=== PATIENT | male | born 1980 | race Caucasian/White ===

== ENCOUNTER 2021-10-11 09:04 | Outpatient (CLI) | payer OTHER, SELFPAY ==
[2021-10-11 14:21] LABS: Cholesterol* 252 mg/dL (90-199); HDL Cholesterol* 63 mg/dL (>=40); LDL Cholesterol Calculated 155 mg/dL (<100); Triglycerides* 172 mg/dL (40-149)
== END 2021-10-11 09:05 | disposition home or self-care (01) ==
PROVIDERS: Visit Provider Physician Assistant Medical
DX: Z00.00 Encounter for general adult medical examination without abnormal findings (principal); R03.0 Elevated blood-pressure reading, without diagnosis of hypertension; Z13.6 Encounter for screening for cardiovascular disorders; Z13.29 Encounter for screening for other suspected endocrine disorder
CPT/HCPCS: 80061; 84443

== ENCOUNTER 2022-01-05 19:25 | Outpatient (CLI) | payer OTHER, SELFPAY ==
--- NOTE | 2022-01-18 12:54 | W.PM.SLEEP ---
Sleep Study Details Details Interpreting Provider: Kevin Vick MD Date of Sleep Study: 01/05/22 Sleep Study Details: STUDY TYPE:? Home ? BMI:? 38.4 ORDERING PROVIDER:? Manuela INDICATION:? Concerns about sleep apnea ? SLEEP SUMMARY:? 613 monitored minutes RESPIRATORY SUMMARY:? AHI 8, supine AHI 42.5, left lateral AHI 7.7, right lateral AHI 21 prone 0 Low oxygen 81 6.9% of study oxygen less than 90%, 0.3% of study oxygen less than 85% Snoring 47.2 PERIODIC LIMB MOVEMENTS OF SLEEP:? Not recorded CARDIAC:? 60-106, mean 81.2 IMPRESSION:? Mild obstructive sleep apnea overall although the patient has severe apnea in the supine position and moderate apnea in the right lateral position RECOMMENDATION: AutoSet CPAP pressure 4-17
== END 2022-01-05 19:26 | disposition home or self-care (01) ==
PROVIDERS: Visit Provider Physician Assistant Medical
DX: G47.33 Obstructive sleep apnea (adult) (pediatric) (principal)
CPT/HCPCS: 95806

== ENCOUNTER 2024-03-18 13:13 | Outpatient (CLI) | payer OTHER, SELFPAY | END 2024-03-18 13:14 | disposition home or self-care (01) | PROVIDERS: Visit Provider Physician Assistant Medical | DX: R03.0 Elevated blood-pressure reading, without diagnosis of hypertension (principal); Z13.0 Encounter for screening for diseases of the blood and blood-forming organs and certain disorders involving the immune mechanism; Z13.6 Encounter for screening for cardiovascular disorders; Z13.1 Encounter for screening for diabetes mellitus; Z13.29 Encounter for screening for other suspected endocrine disorder | CPT/HCPCS: 80053; 80061; 84443 ==

== ENCOUNTER 2024-04-08 10:11 | Outpatient (CLI) | payer OTHER, SELFPAY ==
--- NOTE | 2024-04-08 11:32 | P.ANES_ITS ---
Anesthesia Charges Start Date/Time Anesthesia Start Date: 04/08/24 Anesthesia Start Time: 11:04 Stop Date/Time Anesthesia Stop Date: 04/08/24 Anesthesia Stop Time: 11:30 Coding CPT Codes CPT Codes: JANNETTE LWR INTST SCR COLSC - [id number] ([id number]) P1 - NORMAL HEALTHY PATIENT, QK - MIDDLEWARE DEVELOPER 2-4 CNCRNT ANES PROC, QX - JUKEBOX COIN COLLECTOR SVC W/ MED DIRECTION
--- NOTE | 2024-04-08 11:32 | W.ANESCHARGE ---
Anesthesia Charges Start Date/Time Anesthesia Start Date: 04/08/24 Anesthesia Start Time: 11:04 Stop Date/Time Anesthesia Stop Date: 04/08/24 Anesthesia Stop Time: 11:30 Coding CPT Codes CPT Codes: JANNETTE LWR INTST SCR COLSC - [id number] ([id number]) P1 - NORMAL HEALTHY PATIENT, QK - SPRAY WORKER 2-4 CNCRNT ANES PROC, QX - PROFESSIONAL BONDSMAN SVC W/ MED DIRECTION
--- NOTE | 2024-04-08 12:12 | P.ANES_ITS ---
Anesthesia Charges Start Date/Time Anesthesia Start Date: 04/08/24 Anesthesia Start Time: 11:04 Stop Date/Time Anesthesia Stop Date: 04/08/24 Anesthesia Stop Time: 11:30 Coding CPT Codes CPT Codes: JANNETTE LWR INTST SCR COLSC - [id number] ([id number]) QK - SOFT TOP INSTALLER 2-4 CNCRNT JANNETTE PROC, QX - STOVE REFINISHER SVC W/ MD MED DIRECTION, P2 - PATIENT W/MILD SYST DISEASE
--- NOTE | 2024-04-08 12:12 | W.ANESCHARGE ---
Anesthesia Charges Start Date/Time Anesthesia Start Date: 04/08/24 Anesthesia Start Time: 11:04 Stop Date/Time Anesthesia Stop Date: 04/08/24 Anesthesia Stop Time: 11:30 Coding CPT Codes CPT Codes: JANNETTE LWR INTST SCR COLSC - [id number] ([id number]) QK - OPERATIVE SUPERVISOR 2-4 CNCRNT JANNETTE PROC, QX - VULCANIZING MACHINE OPERATOR SVC W/ MD MED DIRECTION, P2 - PATIENT W/MILD SYST DISEASE
== END 2024-04-08 10:12 | disposition home or self-care (01) ==
LOC: OP CLINIC 10:12
PROVIDERS: PCP Physician Assistant Medical; Visit Provider Surgery
DX: Z12.11 Encounter for screening for malignant neoplasm of colon (principal)
CPT/HCPCS: 00812; 45378; J2704

== ENCOUNTER 2024-04-12 13:43 | Outpatient (CLI) | payer OTHER, SELFPAY | END 2024-04-12 13:44 | disposition home or self-care (01) | LOC: RAD 13:44 | PROVIDERS: PCP Physician Assistant Medical; Visit Provider Physician Assistant Medical | DX: Z82.79 Family history of other congenital malformations, deformations and chromosomal abnormalities (principal); I51.7 Cardiomegaly | CPT/HCPCS: 93306 ==

== ENCOUNTER 2024-05-31 08:46 | Outpatient (CLI) | payer OTHER, SELFPAY | END 2024-05-31 08:47 | disposition home or self-care (01) | LOC: NFLDREF 06-02 16:52 | PROVIDERS: PCP Physician Assistant Medical; Referring Provider Physician Assistant Medical; Visit Provider Physician Assistant Medical | DX: E78.5 Hyperlipidemia, unspecified (principal); E78.1 Pure hyperglyceridemia | CPT/HCPCS: 80061; 80076 ==